=== PATIENT | female | born 1965 | race Caucasian/White ===

== ENCOUNTER 2017-11-20 06:49 | Day surgery (SDC) | payer BC, OTHER ==
[~2017-11-20] VITALS: Ht 154.9 cm; Wt 79.5 kg
[2017-11-20] MEDS ORDERED: CYAN-10 PO (06:57)
[2017-11-20] MEDS ORDERED: ASPI-621 PO (06:57)
[2017-11-20] MEDS ORDERED: OMEG1CAP6 PO (06:57)
[2017-11-20] MEDS ORDERED: METO25TA35 PO (06:57)
[2017-11-20 06:58] VITALS: BP 133/88
[2017-11-20] MEDS ORDERED: MIDAZOLAM 1 MG/ML, 2ML ONE ×2 (08:00→09:02)
[2017-11-20] MEDS ORDERED: ADENOSINE 6 MG/2 ML ONE (08:01)
[2017-11-20] MEDS ORDERED: FENTANYL PF 100 MCG/2ML ONE (08:01)
[2017-11-20] MEDS ORDERED: LIDOCAINE 2%, 20ML ONE (08:01)
[2017-11-20] MEDS ORDERED: ISOPROTERENOL 0.2MG/ML, 5ML ONE (08:01)
== END 2017-11-20 14:38 ==
LOC: CACL 06:49
PROVIDERS: ATTEND Internal Medicine Cardiovascular Disease
DX: I47.1 Supraventricular tachycardia (principal); Z79.82 Long term (current) use of aspirin
CPT/HCPCS: 93613; 93621; 93623; 93653; 99156; 99157; C1730; C1769; C1894; C2630; J2250; J3010; J3490; J0153